=== PATIENT | female | born 1950 | race Caucasian/White ===

== ENCOUNTER 2017-03-27 14:18 | Emergency (ER) | payer MEDICARE, BC ==
[~2017-03-27] VITALS: Ht 167.6 cm; Wt 90.3 kg
--- NOTE | ~2017-03-27 | CT71 ---
[facility] A Service of [facility] RADIOLOGY TEXT RESULTS PATIENT: JATIN HERNANDEZ LOCATION: [facility] : 52 UNIT #: [id number] AGE: [address]: Jovanny Holman MD SEX: F ORDER DR: [id number] [facility] [address] [place], [place] [address] [id number] E MR#: [id number] #: [id number] NAME: JATIN HERNANDEZ : 1950 SEX: F STUDY DATE/TIME: 03/27/2017 19:46 UNIT: [facility] ROOM: STUDY DESCRIPTION: CT Head Wo Contrast Attending Physician: Philippe Holman M.D. Ordering Physician: Philippe Holman M.D. Primary Care Physician: Primary Care Physician No MEDICAL IMAGING REPORT This report is preliminary unless electronic signature is present EXAM CT head without contrast dated 03/27/2017. COMPARISON None. HISTORY Patient fell and hit left side of the head today. Headache and pain in the right eye and forehead today. FINDINGS CT of the head was obtained without contrast in the axial plane. This CT exam was performed with one or more of the following radiation dose reduction techniques: Automatic exposure control, adjustment of mA and/or kV according to patient size, and iterative reconstruction. No acute intracranial hemorrhage, hydrocephalus or midline shift. There is a large hematoma noted in the right side of the face, extending from the right inferior aspect of the preseptal region of the eye all the way to the right frontal scalp with the larger component of the hematoma in the right side of the forehead. It extends just past the left side of midline of the forehead with probably some swelling in the region of the nasion. No underlying fracture. The right ocular structures and the right orbit itself are intact. Paranasal sinuses and mastoid air cells are well aerated. Nasal septum is deviated to the right. IMPRESSION 1. Brain is unremarkable. 2. Soft tissue swelling is noted in the right side of the forehead and the face up to the inferior aspect of the right preseptal region of the eye. [facility] A Service of [facility] RADIOLOGY TEXT RESULTS PATIENT: JATIN HERNANDEZ LOCATION: [facility] : 52 UNIT #: [id number] AGE: [address]: Jovanny Holman MD SEX: F ORDER DR: Dictated by... Antonio Ahn M.D. THIS IS AN ELECTRONICALLY VERIFIED REPORT Antonio Ahn M.D. at 03/28/2017 7:08 PM CPR/psc TD: 03/28/2017 09:06 JOB #: [id number] MEDICAL IMAGING REPORT Page 1 of 1 COPY
== END 2017-03-27 21:10 | disposition home or self-care (01) ==
LOC: CED 14:18
DX: S09.90XA Unspecified injury of head, initial encounter (principal); S00.83XA Contusion of other part of head, initial encounter; S80.212A Abrasion, left knee, initial encounter; S80.211A Abrasion, right knee, initial encounter; W18.30XA Fall on same level, unspecified, initial encounter; Y92.410 Unspecified street and highway as the place of occurrence of the external cause
CPT/HCPCS: 70450; 99284